=== PATIENT | female | born 1995 | race Native Hawaiian/Other Pacific Islander ===

== ENCOUNTER 2024-09-29 10:39 | Observation (INO) ==
--- NOTE | 2024-09-29 10:51 | Emergency Department Note ---
History of Present Illness General Chief complaint: Abdominal Pain Time Seen by Provider: 09/29/24 10:50 History of Present Illness This is a 28-year-old female referred by [facility] that presents to the emergency department via EMS with complaints of "nausea, vomiting, abdominal pain, Crohn's". The patient notes a history of Crohn's disease. Currently not on medication for Crohn's. She states that she was here last week for similar symptoms. She notes that despite additional antiemetics at [facility] her symptoms continue. She notes that she is at the [facility] for evaluation of auditory and visual hallucinations. Those have improved. The patient notes continued nausea and vomiting. For the past 2 days she has not been able to eat or drink secondary to continued vomiting. She notes abdominal pain left and right side of the abdomen. This does feel similar to previous Crohn's flares. She notes that she follows in [facility] with GI. Home Medications Medication Instructions Recorded Confirmed Type acetaminophen 325 mg tablet 650 mg PO Q6H PRN Pain 09/24/24 09/29/24 History (Tylenol) albuterol sulfate 90 mcg/actuation 2 puff inhalation Q6H PRN 09/24/24 09/29/24 History aerosol inhaler Shortness Of Breath Or Wheezing cariprazine 4.5 mg capsule 4.5 mg PO QAM 09/24/24 09/29/24 History (Vraylar) colestipol 1 gram tablet 1 g PO BID 09/24/24 09/29/24 History lamotrigine 100 mg tablet 100 mg PO BID 09/24/24 09/29/24 History (Lamictal) levothyroxine 75 mcg tablet 75 mcg PO DAILYBB 09/24/24 09/29/24 History loperamide 2 mg capsule 2 mg PO Q4H PRN Diarrhea 09/24/24 09/29/24 History medroxyprogesterone 150 mg/mL 150 mg IM DIRECTED 09/24/24 09/29/24 History intramuscular syringe prazosin 5 mg capsule 10 mg PO HS 09/24/24 09/29/24 History sumatriptan succinate 25 mg tablet 25 mg PO DAILY PRN Migraine 09/24/24 09/29/24 History Headache topiramate 100 mg tablet 100 mg PO BID 09/24/24 09/29/24 History trazodone 100 mg tablet 100 mg PO HS 09/24/24 09/29/24 History dicyclomine 10 mg capsule 10 mg PO QID 09/29/24 09/29/24 History hydroxyzine HCl 25 mg tablet 25 mg PO Q6H PRN Anxiety 09/29/24 09/29/24 History lactase 9,000 unit chewable tablet 9,000 unit PO AC PRN Dairy 09/29/24 09/29/24 History Food/Milk Products ondansetron 4 mg disintegrating 4 mg PO BID PRN Nausea And Vomiting 09/29/24 09/29/24 History tablet phenobarbital 64.8 mg tablet 64.8 mg PO TID 09/29/24 09/29/24 History Allergies Allergy/AdvReac Type Severity Reaction Status Date / Time latex Allergy Severe SHORT OF Verified 09/24/24 23:37 BREATH/HIVES--PROLONGED EXPOSURE droperidol AdvReac Intermediate AGITATION Verified 09/24/24 23:37 Past Med/Surg History Problem List (Updated 09/29/24 @ 17:44 by Joseph Castillo PA-C) Crohn disease (Acute) Hypothyroidism OCD (obsessive compulsive disorder) Intractable nausea and vomiting (Acute) Abdominal pain, acute (Acute) Social History Smoking Status: Never smoker Hx Alcohol Use: Yes Hx Substance Use: Yes Last Used Substance: Unknown Substance Use Type Other:: pain management follows Preferred Language: [place] Communication Ability: Effective Informatics Coordinator Required: No Beliefs That Will Affect Care: None Current Living Situation: Parent Current Living Situation Comment: just came from the [facility] Feels Safe at Home: Yes Review of Systems A total of 10 systems reviewed and were otherwise negative Physical Exam Vital Signs Vital Signs - 24 hr 09/29/24 10:35 09/29/24 10:56 09/29/24 11:01 Temperature 37 C Temperature Source Oral Pulse Rate 96 H 80 Pulse Rate [Apical] 80 Pulse Rhythm Regular Pulse Strength Normal Pulse Strength [Apical] Respiratory Rate 17 18 Respiratory Effort / Characteristics Non-Labored Spontaneous Non-Labored Spontaneous Respiratory Depth Normal Normal Respiratory Pattern Regular Regular Blood Pressure 130/87 Blood Pressure [Right Arm] 119/85 Blood Pressure Mean 101 Blood Pressure Mean [Right Arm] 96 Pulse Oximetry 94 100 Oxygen Delivery Method Room Air Room Air Sepsis Recent Fever Within 48 Hours No Sepsis New/Unexplained Change in Mental Status No Sepsis Action Taken by Nursing No Action Required 09/29/24 11:47 09/29/24 11:47 Temperature Temperature Source Pulse Rate Pulse Rate [Apical] 90 Pulse Rhythm Pulse Strength Pulse Strength [Apical] Normal Respiratory Rate 18 Respiratory Effort / Characteristics Non-Labored Spontaneous Respiratory Depth Normal Respiratory Pattern Regular Blood Pressure Blood Pressure [Right Arm] 130/74 Blood Pressure Mean Blood Pressure Mean [Right Arm] 92 Pulse Oximetry 99 100 Oxygen Delivery Method Room Air Room Air Sepsis Recent Fever Within 48 Hours Sepsis New/Unexplained Change in Mental Status Sepsis Action Taken by Nursing VITAL SIGNS - Vital signs and nursing notes were reviewed. Stable and afebrile. GENERAL -28-year-old female appearing her stated age who is in no acute distress. Communicates well with provider and answers questions appropriately. SKIN - Without rashes. No meningeal or petechial rash. HEAD - NC/AT. EYES - PERRL with EOMI bilaterally. Sclera anicteric. EARS - No deformities of external structures noted on gross examination bilaterally. NOSE - Midline and without cyanosis. No epistaxis or purulent drainage noted. MOUTH/OROPHARYNX - Without perioral cyanosis. NECK - Neck with FROM. No nuchal rigidity. LUNGS - CTA CARDIAC - RRR ABDOMEN - Abdominal contour normal without pulsations or visible masses. BS normoactive all four quadrants. There is generalized abdominal tenderness to palpation. No guarding or rigidity. No palpable masses, hepatosplenomegaly, or ascites noted. EXTREMITIES - No clubbing or peripheral cyanosis. +5/5 strength noted in UE/LE bilaterally. NEUROLOGIC - Cranial nerves II through XII grossly intact. PSYCH - Alert and oriented on exam. Course Administered Medications Sodium Chloride (Nss) 1,000 mls @ 80 mls/hr IV .[id number] [facility] Stop: 10/02/24 15:14 Last Admin: 09/29/24 15:45 Dose: 80 mls/hr Documented By: KEITH Ondansetron HCl (Ondansetron Inj 2 Mg/Ml 2 Ml Vial) 4 mg IV Q6H PRN PRN Reason: Nausea Stop: 10/29/24 15:14 Last Admin: 09/29/24 17:24 Dose: 4 mg Documented By: KEITH Phenobarbital (Phenobarbital 30 Mg Tab) 60 mg PO TID [facility] Stop: 10/29/24 15:29 Last Admin: 09/29/24 16:51 Dose: 60 mg Documented By: KEITH Discontinued Medications Diphenhydramine HCl (Diphenhydramine 50 Mg/Ml Vial) 25 mg IV NOW STA Stop: 09/29/24 12:11 Last Admin: 09/29/24 12:39 Dose: 25 mg Documented By: JACKIE Hydromorphone HCl (Hydromorphone Inj 0.5 Mg/0.5 Ml Syr) 0.5 mg IV NOW STA Stop: 09/29/24 11:23 Last Admin: 09/29/24 11:46 Dose: 0.5 mg Documented By: JACKIE Hydromorphone HCl (Hydromorphone Inj 0.5 Mg/0.5 Ml Syr) 0.5 mg IV NOW STA Stop: 09/29/24 14:15 Last Admin: 09/29/24 14:22 Dose: 0.5 mg Documented By: JACKIE Sodium Chloride (Nss) 1,000 mls @ 999 mls/hr IV .Q1H1M ONE Stop: 09/29/24 13:05 Last Infusion: 09/29/24 14:46 Dose: Infused Documented By: Admin: 09/29/24 12:38 Dose: 999 mls/hr Documented By: JACKIE Metoclopramide HCl (Metoclopramide Hcl Inj 5 Mg/Ml 2 Ml Vial) 5 mg IV ONE ONE Stop: 09/29/24 12:11 Last Admin: 09/29/24 12:38 Dose: 5 mg Documented By: JACKIE Ondansetron HCl (Ondansetron Inj 2 Mg/Ml 2 Ml Vial) 4 mg IV NOW STA Stop: 09/29/24 11:23 Last Admin: 09/29/24 11:45 Dose: 4 mg Documented By: JACKIE Medical Decision Making Laboratory Data 09/29/24 11:05 09/29/24 11:05 Lab Results 09/29/24 Range/Units 11:05 WBC 5.14 (4.8-10.8) K/ul RBC 4.32 (4.20-5.40) M/uL Hgb 13.0 (12.0-16.0) g/dl Hct 38.9 (37.0-47.0) % MCV 90.0 (80.0-100.0) fL MCH 30.1 (25.0-34.0) pg MCHC 33.4 (32.0-36.0) g/dL RDW Std Deviation 45.9 (36.4-46.3) fL RDW Coeff of Faiza 13.9 (11.5-14.5) % Plt Count 252 (130-400) K/uL MPV 9.6 (9.4-12.4) fL Immature Gran % (Auto) 0.2 % Neut % (Auto) 60.3 % Lymph % (Auto) 28.6 % [place] % (Auto) 10.1 % Eos % (Auto) 0.0 % Baso % (Auto) 0.8 % Neut # (Auto) 3.10 (1.40-6.50) K/uL Lymph # (Auto) 1.47 (1.20-3.40) K/uL [place] # (Auto) 0.52 (0.11-0.59) K/uL Eos # (Auto) 0.00 (0.00-0.50) K/uL Baso # (Auto) 0.04 (0.00-0.20) K/uL Immature Gran # (Auto) 0.01 (0.01-0.20) K/uL Sodium 139 (136-145) mmol/L Potassium 3.9 (3.5-5.1) mmol/L Chloride 111 H (98-107) mmol/L Carbon Dioxide 20 L (21-32) mmol/L Anion Gap 8 (3-11) BUN 14 (6-23) mg/dl Creatinine 0.82 (0.6-1.2) mg/dl Est Cr Clr Drug Dosing 89.8 ml/min eGFR 98.62 BUN/Creatinine Ratio 17.1 (10-20) Glucose 96 (70-99(Fasting)) mg/dl Calcium 9.3 (8.6-10.3) mg/dl Magnesium 2.3 (1.7-2.4) mg/dl Total Bilirubin 0.3 (0.2-1.0) mg/dl AST 36 (13-39) U/L ALT 54 H (7-52) U/L Alkaline Phosphatase 218 H (34-104) U/L Total Protein 7.9 (6.0-8.3) gm/dl Albumin 4.5 (3.4-5.0) gm/dl Globulin 3.4 (2.5-4.0) gm/dl Albumin/Globulin Ratio 1.3 (0.9-2) Lipase 40 (11-82) U/L HCG, Qual Negative (Negative) Imaging Data Radiologist's Impression: Chest/Abdomen X-ray 09/29/24 12:07 XR abdomen 2V w PA chest CLINICAL HISTORY: hx Crohns, nausea/vomiting. COMPARISON STUDY: 09/25/2024 CT FINDINGS: CHEST: Heart size and pulmonary vasculature are normal. No consolidation, pleural effusion, or pneumothorax. ABDOMEN: Stable right abdominal surgical clips and suture. There is mild retained stool. No bowel obstruction seen. No gross free air. IMPRESSION: No acute findings. ACT 112: Negative or not required by law. Electronically signed by: Marshall Castillo M.D. 09/29/2024 12:21 PM MDM Narrative Patient was seen and evaluated as above in room C4. Review was performed of triage nursing notes and vital signs. I did review pertinent previous visits and patient history. After obtaining a thorough history and physical examination the above work up was performed. I did review the CT scan of the abdomen/pelvis dated 09/25/2024. No significant abnormality noted by radiologist at that time. Options of care were discussed with the patient. IV access was established. Labs were drawn. No leukocytosis or concerning anemia. No emergent metabolic disturbance. Mild ovation of chloride at 111. Carbon dioxide 20. Mild elevation of ALT at 54 which is new. Alk phos elevated at 218. Lipase negative. hCG negative. Urinalysis with 3+ leukocytes, 2150 WBCs, 35 hyaline cast, 35 epithelial cells, 1+ bacteria in urine mucus. I will note that urine was somewhat similar last time the patient was here. I reviewed the culture from that visit. This showed more than 3 types of organisms present, all moderate counts with mixed probable skin melissa. No distinct urinary symptoms at this time. This may be contaminated noting the amount of epithelial cells. Culture pending. I will hold off on empiric antibiotics as I have a low suspicion for UTI at this time. I did order IV Zofran for nausea and IV Dilaudid for pain. Patient notes continued abdominal pain and nausea despite the IV Dilaudid and IV Zofran. She asked for a different type of antiemetic. We reviewed options. She notes she has had Reglan before without issue. Ordered 5 mg of Reglan and 25 mg IV Benadryl. EKG was obtained to assess QTc. Per my interpretation this EKG reveals normal sinus rhythm with sinus arrhythmia at a rate of 80 bpm. QTc 445. QRS 86. No ST elevation. Case discussed with the hospitalist service as I do believe that further evaluation and management inpatient setting is warranted. Chest x-ray/KUB ordered and was essentially negative. I do not believe that repeat CT scan is needed at this time. GCS: 15 In the evaluation and treatment of this patient the following differential diagnoses were entertained: Bowel obstruction, Crohn's exacerbation, electrolyte disturbance, UTI, pyelonephritis, among others. Impression & Plan Abdominal pain, acute, Intractable nausea and vomiting, Crohn disease Discharge Plan Visit Data Chief Complaint: Abdominal Pain ED Provider: Richard Patricia ED Midlevel Provider: Joseph Castillo Discharge Problem: Abdominal pain, acute, Intractable nausea and vomiting, Crohn disease Patient Disposition: Admitted As Inpatient Condition: Good Discharge Instructions Interventions: ED Discharge Assessment Last Done: 09/29/24 14:45
[2024-09-29 11:18] LABS: Hematocrit (blood only) 38.9 % (37.0-47.0); Hemoglobin 13.0 g/dl (12.0-16.0); Immature Granulocytes # (auto) 0.01 K/uL (0.01-0.20); Immature Granulocytes % (auto) 0.2 %; Mean Corpuscular Hemoglobin 30.1 pg (25.0-34.0); Mean Corpuscular Volume 90.0 fL (80.0-100.0); Platelet Count 252 K/uL (130-400); RDW Standard Deviation 45.9 fL (36.4-46.3); Red Blood Count 4.32 M/uL (4.20-5.40); White Blood Count 5.14 K/ul (4.8-10.8)
[2024-09-29 11:34] LABS: Alanine Aminotransferase 54.0 U/L (7-52); Albumin Globulin Ratio 1.3 (0.9-2); Alkaline Phosphatase 218.0 U/L (34-104); Anion Gap 8.0 (3-11); Bilirubin,Total 0.3 mg/dl (0.2-1.0); Blood Urea Nitrogen 14.0 mg/dl (6-23); Calcium 9.3 mg/dl (8.6-10.3); Carbon Dioxide 20.0 mmol/L (21-32); Chloride 111.0 mmol/L (98-107); Creatinine Clr Calc Pharmacy 89.8 ml/min; Globulin 3.4 gm/dl (2.5-4.0); Glucose 96.0 mg/dl (70-99(Fasting)); Lipase 40.0 U/L (11-82); Magnesium 2.3 mg/dl (1.7-2.4); Potassium 3.9 mmol/L (3.5-5.1); Sodium 139.0 mmol/L (136-145); Total Protein 7.9 gm/dl (6.0-8.3)
[2024-09-29 11:35] LABS: Pregnancy Test, Serum Negative (Negative)
[2024-09-29] MEDS: ONDANSETRON INJ 2 MG/ML 2 ML VIAL IV STA (11:45)
[2024-09-29] MEDS: HYDROmorphone INJ 0.5 MG/0.5 ML SYR IV STA ×2 (11:46→14:22)
--- NOTE | 2024-09-29 12:23 | XRay Report ---
XR abdomen 2V w PA chest CLINICAL HISTORY: hx Crohns, nausea/vomiting. COMPARISON STUDY: 09/25/2024 CT FINDINGS: CHEST: Heart size and pulmonary vasculature are normal. No consolidation, pleural effusion, or pneumo thorax. ABDOMEN: Stable right abdominal surgical clips and suture. There is mild retained stool. No bowel obs truction seen. No gross free air. IMPRESSION: No acute findings. ACT 112: Negative or not required by law. Electronically signed by: Marshall Castillo M.D. 09/29/2024 12:21 PM
[2024-09-29] MEDS: METOCLOPRAMIDE HCL INJ 5 MG/ML 2 ML VIAL IV ONE (12:38)
[2024-09-29] MEDS: SODIUM CHLORIDE 0.9% 1,000 ML IV ONE (12:38)
[2024-09-29] MEDS: diphenhydrAMINE 50 MG/ML VIAL IV STA (12:39)
--- NOTE | 2024-09-29 12:45 | History & Physical Report ---
Date of Service September 29, 2024 Assessment & Plan (1) Intractable nausea and vomiting: Plan: Patient has a history of Crohn's disease. Presents from [facility] with complaints of intractable nausea and vomiting. Says this does not feel like her previous Crohn's flareup. However she has not been able to keep any food down. CT abdomen and pelvis done 5 days ago did not show any acute pathology Chest and abdominal x-ray also within normal limits. Will institute IV Zofran 4 mg every 4 hours as needed, may also add promethazine Gentle hydration with IV normal saline 80 cc/h (2) Abdominal pain, acute: Plan: Mild abdominal pain on exam Received a dose of Dilaudid in the ED At 0.5 mg IV Dilaudid as needed every 4 hours (3) OCD (obsessive compulsive disorder): Plan: Was admitted to medical psychiatric unit from [place] The reason for admission was because she was banging her head on the wall and also exhibited a lot of anxiety and OCD Will continue her psychiatric medications while here in the hospital (4) Hypothyroidism: Plan: Continue levothyroxine (5) Crohn disease: Plan: According to the patient, she has not had flareup for the past 1 year Although has not been able to see a computer programming supervisor due to some insurance changes Plan Admit under observation Full code History of Present Illness Chief Complaint: nausea, vomiting, Primary Care Provider: Edison Sarkar This is a 28-year-old female with a history of Crohn's disease, asthma, hypothyroidism generalized anxiety disorder, OCD, who was brought from the [facility] with complaints of intractable nausea vomiting and abdominal pain. Of note patient was here in the emergency department about 5 days ago with the same symptoms. CT scan of the abdomen and pelvis obtained then was within eduardo l limits she was sent back to the [facility]. However over the past few days, she continued to have intractable nausea with vomiting and abdominal pain however denies diarrhea. She says she has Crohn's disease but her Crohn's flareup usually comes with nausea vomiting and diarrhea. Here in emergency department CBC and BMP were essentially within normal limits however alkaline phosphatase was slightly high at 218 today compared to 216 on 09/24/2024. Chest x-ray and abdominal x-ray did not show any acute findings. Patient will be started on IV Zofran and promethazine and will be admitted to medicine for further management. Allergies Allergy/AdvReac Type Severity Reaction Status Date / Time latex Allergy Severe SHORT OF Verified 09/24/24 23:37 BREATH/HIVES--PROLONGED EXPOSURE droperidol AdvReac Intermediate AGITATION Verified 09/24/24 23:37 Home Medications Medication Instructions Recorded Confirmed Type acetaminophen 325 mg tablet 650 mg PO Q6H PRN Pain 09/24/24 09/24/24 History (Tylenol) albuterol sulfate 90 mcg/actuation 2 puff inhalation Q6H PRN 09/24/24 09/24/24 History aerosol inhaler Shortness Of Breath Or Wheezing cariprazine 4.5 mg capsule 4.5 mg PO QAM 09/24/24 09/24/24 History (Vraylar) colestipol 1 gram tablet 1 g PO BID 09/24/24 09/24/24 History lamotrigine 100 mg tablet 100 mg PO BID 09/24/24 09/24/24 History (Lamictal) levothyroxine 75 mcg tablet 75 mcg PO DAILYBB 09/24/24 09/24/24 History loperamide 2 mg capsule 2 mg PO Q4H PRN Diarrhea 09/24/24 09/24/24 History medroxyprogesterone 150 mg/mL 150 mg IM [id number] 09/24/24 09/24/24 History intramuscular syringe phenobarbital 60 mg tablet 60 mg PO TID 09/24/24 09/24/24 History prazosin 5 mg capsule 10 mg PO HS 09/24/24 09/24/24 History sumatriptan succinate 25 mg tablet 25 mg PO DAILY PRN Migraine 09/24/24 09/24/24 History Headache topiramate 100 mg tablet 100 mg PO BID 09/24/24 09/24/24 History trazodone 100 mg tablet 100 mg PO HS 09/24/24 09/24/24 History Past Med/Surg History Problem List (Updated 09/29/24 @ 12:42 by Nacho Velasquez MD) Crohn disease Hypothyroidism OCD (obsessive compulsive disorder) Intractable nausea and vomiting Abdominal pain, acute (Acute) Social History Smoking Status: Never smoker Feels Safe at Home: Yes Review of Systems Review of Systems: All systems reviewed are negative, apart from the ones contained in the history. Physical Exam Physical Exam: The patient is awake, alert and oriented 3, well developed and well nourished, normocephalic and atraumatic, lying in bed and in no acute distress. HEENT--PERRL, EOMI, mucous membranes and oropharynx mildly dry Neck--supple. No JVD. No bruits. Thyroid normal, trachea midline, no adenopathy. Heart--normal S1 and S2. No murmurs, rubs or gallops. Lungs--clear bilaterally, no respiratory distress, no accessory muscle use. Abdomen--normal bowel sounds and soft. Extremities--no cyanosis or clubbing. No edema. Dermatologic--normal skin turgor, normal color, no abnormal lymph nodes, no rash. Neurologic--cranial nerves II through XII grossly intact. Rheumatologic--normal range of motion. Psychiatric--normal affect. Results & Data Results & Data Vital Signs (Past 12 Hours) Vital Signs Temp Pulse Pulse Resp BP BP Pulse Ox 09/29/24 11:47 90 18 130/74 100 09/29/24 11:47 99 09/29/24 11:01 80 18 119/85 100 09/29/24 10:56 80 09/29/24 10:35 98.6 F 96 H 17 130/87 94 O2 Del Method 09/29/24 11:47 Room Air 09/29/24 11:47 Room Air 09/29/24 11:01 Room Air 09/29/24 10:56 09/29/24 10:35 Room Air PG Care Time/CCT Total # of Minutes Spent Total Time Spent with Patient: Total time spent is greater than 50% in coordination of care (as documented) at patient's floor/unit and/or counseling patient: Coding Level of Care Code 49444 INT INP/OBS CARE 3/75MIN Diagnoses Intractable nausea and vomiting R11.2 Abdominal pain, acute R10.9 OCD (obsessive compulsive disorder) F42.9 Hypothyroidism E03.9 Crohn disease K50.90 Time Spent (min) 75
[2024-09-29 14:38] LABS: Appearance Urine Clear (Clear); Bacteria Urine Automated 1+ (None Seen); Glucose Urine UA Negative (Negative); RBC Urine Automated 0-2 /hpf (0-2); WBC Urine Automated 21-50 /hpf (0-5)
[2024-09-29] MEDS ORDERED: ALBUTEROL HFA 8 GM INHALER INH PRN (15:15)
[2024-09-29] MEDS: SODIUM CHLORIDE 0.9% 1,000 ML IV SCH (15:45)
[2024-09-29] MEDS: ONDANSETRON INJ 2 MG/ML 2 ML VIAL IV PRN (17:24)
[2024-09-29] MEDS: HYDROmorphone INJ 0.5 MG/0.5 ML SYR IV PRN (20:29)
--- NOTE | 2024-09-29 22:16 | Electrocardiogram Report ---
Test Reason : Blood Pressure : */* mmHG Vent. Rate : 80 BPM Atrial Rate : 80 BPM P-R Int : 128 ms QRS Dur : 86 ms QT Int : 386 ms P-R-T Axes : 59 -7 25 degrees QTcB Int : 445 ms Normal sinus rhythm with sinus arrhythmia Normal ECG No previous ECGs available Confirmed by Lucas Vásquez ([id number]) on 09/29/2024 10:15:59 PM Referred By: Edison Sarkar Confirmed By: Lucas Vásquez
[2024-09-29] MEDS: PROCHLORPERAZINE 5 MG in SYRINGE 4 ML IV PRN (22:24)
[2024-09-29] MEDS: TOPIRAMATE 100 MG TAB PO SCH (22:24)
[2024-09-29] MEDS: lamoTRIgine 100 MG TAB PO SCH (22:24)
[2024-09-29] MEDS: COLESTIPOL HCL 1 GM TAB PO SCH (22:24)
[2024-09-29] MEDS: ACETAMINOPHEN 1,000 MG/100 ML VIAL IV PRN (23:34)
[2024-09-30] MEDS: LEVOTHYROXINE SODIUM 75 MCG TABLET PO SCH (06:02)
[2024-09-30] MEDS: CARIPRAZINE HCL 1.5 MG CAP PO SCH (10:44)
--- NOTE | 2024-09-30 10:48 | Discharge Summary ---
Date of Service September 30, 2024 Admission HPI Per Admitting Provider This is a 28-year-old female with a history of Crohn's disease, asthma, hypothyroidism generalized anxiety disorder, OCD, who was brought from the [facility] with complaints of intractable nausea vomiting and abdominal pain. Of note patient was here in the emergency department about 5 days ago with the same symptoms. CT scan of the abdomen and pelvis obtained then was within normal limits she was sent back to the [facility]. However over the past few days, she continued to have intractable nausea with vomiting and abdominal pain however denies diarrhea. She says she has Crohn's disease but her Crohn's flareup usually comes with nausea vomiting and diarrhea. Here in emergency department CBC and BMP were essentially within normal limits however alkaline phosphatase was slightly high at 218 today compared to 216 on 09/24/2024. Chest x-ray and abdominal x-ray did not show any acute findings. Patient will be started on IV Zofran and promethazine and will be admitted to medicine for further management. Admission Exam (Per Admitting) Constitutional The patient is awake, alert and oriented 3, well developed and well nourished, normocephalic and atraumatic, lying in bed and in no acute distress. HEENT--PERRL, EOMI, mucous membranes and oropharynx mildly dry Neck--supple. No JVD. No bruits. Thyroid normal, trachea midline, no adenopathy. Heart--normal S1 and S2. No murmurs, rubs or gallops. Lungs--clear bilaterally, no respiratory distress, no accessory muscle use. Abdomen--normal bowel sounds and soft. Extremities--no cyanosis or clubbing. No edema. Dermatologic--normal skin turgor, normal color, no abnormal lymph nodes, no rash. Neurologic--cranial nerves II through XII grossly intact. Rheumatologic--normal range of motion. Psychiatric--normal affect. Discharge Data Consultations 09/29/24 12:14 ED Decision to Admit Stat Hospital Course (1) Cystitis: acute cystitis urinalysis positive for UTI Start PO Ciprofloxacin 250mg BID for 3 days (2) Intractable nausea and vomiting: Now resolved Patient has a history of Crohn's disease. Presents from [facility] with complaints of intractable nausea and vomiting. Says this does not feel like her previous Crohn's flareup. However she has not been able to keep any food down. CT abdomen and pelvis done 5 days ago did not show any acute pathology Chest and abdominal x-ray also within normal limits. (3) Abdominal pain, acute: Mild abdominal pain on exam Received a dose of Dilaudid in the ED At 0.5 mg IV Dilaudid as needed every 4 hours (4) OCD (obsessive compulsive disorder): Was admitted to medical psychiatric unit from [place] The reason for admission was because she was banging her head on the wall and also exhibited a lot of anxiety and OCD Will continue her psychiatric medications while here in the hospital (5) Hypothyroidism: Continue levothyroxine (6) Crohn disease: According to the patient, she has not had flareup for the past 1 year Although has not been able to see a mechanical artist due to some insurance changes Plan discharge back to the [facility] Coding Level of Care Code 29217 INP/OBS DISCH >30 MIN Diagnoses Cystitis N30.90 Intractable nausea and vomiting R11.2 Abdominal pain, acute R10.9 OCD (obsessive compulsive disorder) F42.9 Hypothyroidism E03.9 Crohn disease K50.90 Time Spent (min) 35
[2024-09-30] MEDS: CIPROFLOXACIN 250 MG TAB PO SCH (12:00)
== END 2024-09-30 13:19 ==
LOC: SUATTDRO → ED 10:39 → 3N 10:39